=== PATIENT | female | born 1995 | race Caucasian/White ===

== ENCOUNTER 2016-07-23 16:44 | Outpatient (CLI) | payer OTHER ==
[~2016-07-23] VITALS: Ht 149.9 cm; Wt 43.0 kg
[2016-07-23 16:55] VITALS: BP 114/74
[2016-07-23] MEDS ORDERED: PRENTAB9 PO (18:09)
--- NOTE | 2016-07-23 20:06 | HPE ---
DATE OF ADMISSION: 07/23/2016 HISTORY OF PRESENT ILLNESS: This lady is a 21-year-old 2, para 1, last menstrual period (LMP) 11/01/2015, estimated date of confinement (EDC) 08/07/2016, at 37 and 6 weeks with history contractions. PAST HISTORY: Had a delivery in 2013, at 35 weeks, spontaneous vaginal delivery female 6 pounds 8 ounces. LABORATORY DATA: B positive, HIV negative, hepatitis negative, RPR negative, rubella immune. Varicella immune. Pap normal. Urine negative. Gonorrhea and chlamydia negative. One-hour glucose 90. GBS status is unknown. PHYSICAL EXAMINATION: On examination no acute distress. Symphysis fundus height is 37 cm, vertex occiput anterior (OA) 70% effaced, -2 station, very posterior 2 cm. Category one strip. Urine is 1.000, pH seven negative, temperature 99.7, Blood pressure 114/74, respirations are 16 and pulse is 104. The rest of the examination is unremarkable. She is normocephalic and atraumatic. Neck full range of motion. Pupils equal and reactive to light. Distal pulses are symmetric. No evidence of deep venous thrombosis (DVT), pulmonary embolism (PE) or superficial phlebitis. Chest is clear bilaterally to bases. No wheezes or rhonchi. Thyroid is normal midline. No jugular venous distention (JVD). No costovertebral angle tenderness. Uterus is nontender. Four quadrant bowel sounds are noted. Appropriate symphysis fundus height. She has no rashes or lesions or pruritus. No arthralgia, myalgia. No constipation, diarrhea. No nausea, vomiting. No incontinence, urgency or frequency. No bruising. No bleeding. She is neuro complete. No complaints of cough, wheezes, shortness of breath or dyspnea on exertion. No arthralgia or myalgia. No gynecological ([employer] WARE[employer]SE [employer]NALYST) issues. No diabetic issues. The patient is having some uterine irritability on the monitor, had pelvic examination. We re-monitored this lady and reexamined her two hours later; basically no change. We counseled her regarding premature rupture of membranes, labor, vaginal bleeding, and decreased movement, when to call the provider. She has an appointment next week with the provider at [place]. The patient was discharged undelivered.
== END 2016-07-23 19:55 | disposition home or self-care (01) ==
LOC: M LDO 16:44
PROVIDERS: ATTEND Obstetrics & Gynecology
DX: O26.893 Other specified pregnancy related conditions, third trimester (principal); Z3A.37 37 weeks gestation of pregnancy; O62.0 Primary inadequate contractions; Z88.0 Allergy status to penicillin

== ENCOUNTER 2016-07-26 17:04 | Inpatient (IN) | payer OTHER ==
[2016-07-26] VITALS (16 sets, daily range): BP systolic 74–129; BP diastolic 43–81
[~2016-07-26] VITALS: Ht 149.9 cm; Wt 47.0 kg
[~2016-07-26 17:04] MED LIST: PRENTAB9 PO
[2016-07-26] MEDS ORDERED: ONDANSETRON 4 MG TAB (S0181) PO ONE (18:00)
[2016-07-26] MEDS ORDERED: LR 1,000 ML IV SCH (19:45)
[2016-07-26 20:30] LABS: MEAN CORPUSCULAR HEMOGLOBIN 22.9 pg (27.0-33.0); MEAN CORPUSCULAR HGB CONC 32.2 g/dl (32.0-36.5); MEAN CORPUSCULAR VOLUME 71.2 fl (80.0-96.0); RED CELL DISTRIBUTION WIDTH 16.3 % (11.5-14.5); WHITE BLOOD COUNT 5.7 K/mm3 (4.0-10.0)
[2016-07-26] MEDS ORDERED: FENTANYL 2MCG/ML ROPIVACAINE 0.2% NACL 250 ML CADD As Ordered ONE (20:39)
[2016-07-26] MEDS ORDERED: OXYTOCIN INJ 10 UNITS/ML VIAL (J2590) As Ordered ONE (20:42)
[2016-07-26] MEDS ORDERED: OXYTOCIN 30 UNITS IN 0.9% NaCl 500ML IV BAG (J2590) As Ordered ONE (20:42)
[2016-07-26] MEDS ORDERED: NALOXONE INJ 0.4 MG/1 ML VIAL (J2310) IV PRN (21:15)
[2016-07-26] MEDS ORDERED: LACTATED RINGER'S 1000 ML IV PRN (21:15)
[2016-07-26] MEDS ORDERED: diphenhydrAMINE INJ 50MG/ML VIAL (J1200) IV PRN (21:15)
[2016-07-26] MEDS ORDERED: ONDANSETRON 4MG/2ML VIAL (J2405) IV PRN (21:15)
[2016-07-26] MEDS ORDERED: FENTANYL/ROPIVACAINE/NACL BAG 200 ML EPIDURAL SCH (21:15)
[2016-07-26] MEDS ORDERED: EPIDURAL/PCA KEYS XX PRN (21:15)
[2016-07-26] MEDS ORDERED: ePHEDrine SULFATE 25 MG/5 ML(5MG/ML) SYRINGE IV PRN (21:15)
[2016-07-26] MEDS ORDERED: REFRIGERATOR IV KEYS XX PRN (21:15)
[2016-07-26] MEDS ORDERED: EPIDURAL COMMENT XX SCH (21:15)
[2016-07-27] VITALS (8 sets, daily range): BP systolic 99–118; BP diastolic 50–79
[2016-07-27] MEDS ORDERED: OXYTOCIN DRIP 30 UNITS in APPROPRIATE DILUENT 1 EA IV SCH (01:44)
[2016-07-27] MEDS ORDERED: OXYTOCIN INJ 10 UNITS/ML VIAL (J2590) IV ONE (01:45)
[2016-07-27] MEDS ORDERED: MEASLES,MUMPS,RUBELLA VACCINE INJ (MMR-II) (90707) SC SCH (01:45)
[2016-07-27] MEDS ORDERED: METHYLERGONOVINE MALEATE 0.2 MG TAB PO PRN (01:45)
[2016-07-27] MEDS ORDERED: MOM 30ML SUSPENSION UDC PO PRN (01:45)
[2016-07-27] MEDS ORDERED: ANUSOL HC CREAM 30GM TOP PRN (01:45)
[2016-07-27] MEDS ORDERED: RHOGAM 300 MCG (1500 IU) INJ (J2790) IM SCH (01:45)
[2016-07-27] MEDS ORDERED: IBUPROFEN 600 MG TAB PO PRN (01:45)
[2016-07-27] MEDS ORDERED: DOCUSATE SODIUM 100 MG CAP PO PRN (01:45)
[2016-07-27] MEDS ORDERED: DIBUCAINE 1% OINTMENT 30GM TOP PRN (01:45)
[2016-07-27 01:56] LABS: CORD GAS ABE V -3.1; CORD GAS HCO3 A 25.6 MEQ/L; CORD GAS HCO3 V 22.8 MEQ/L; CORD GAS O2 SAT A 25.3 %; CORD GAS O2 SAT V 65.1 %; CORD GAS PCO2 A 60.6 mmHg; CORD GAS PCO2 V 43.8 mmHg; CORD GAS PH A 7.244 UNITS; CORD GAS PH V 7.335 UNITS; CORD GAS PO2 A 15.4 mmHg; CORD GAS PO2 V 28.5 mmHg; CORD GAS SBC A 20.3 MEQ/L; CORD GAS SBC V 21.1 MEQ/L; CORD GAS TCO2 A 27.5 MEQ/L; CORD GAS TCO2 V 24.2 MEQ/L
--- NOTE | 2016-07-27 04:28 | DN ---
DATE: 07/27/2016 This lady is 1 now para 2 admitted in spontaneous labor at 38-3/7 weeks of gestation. After epidural was placed and the AROM was done draining clear liqua, she was 8 cm in the OT position at full dilatation. Spontaneous vaginal delivery live female infant weighing 6 pounds 15 ounces, 3150 grams. of 8/9 at 1 and 5 minutes respectively. Arterial and venous pH was performed. Placenta delivered spontaneously thereafter. Three-vessel cord, membranes and tissues intact. Examination of the perineum, the vagina and the cervix were normal. No tears, extensions, or lacerations. Uterus contracted well down on Pitocin. The patient and baby tolerating procedure well.
[2016-07-27] MEDS: PRENATAL VITAMIN TAB PO SCH (07:20)
[2016-07-27] MEDS: ACETAMINOPHEN 500 MG TAB PO PRN ×2 (13:48→20:33)
[2016-07-28 06:00] VITALS: BP 119/80
--- NOTE | 2016-07-28 06:36 | IPNPDOC ---
Text Note Date of Service The patient was seen on 07/28/16. NOTE PPD 1 Arlene is a 21yo [id number] doing well on PPD 1 s/p uncomplicated on 07/27 at 0149. She is . Lochia normal, spontaneously voiding and ambulating without difficulty. Tolerating regular diet. Denies f/c/n/v/SOB/CP/GORDILLO /abdominal pain. Vitals wnl, afebrile Exam: General: WDWN, NAD, resting comfortably Cardiac: S1S2 present, no murmur Lungs: CTAB without wheeze/crackles Abdomen: soft, NTTP, fundus firm u-2cm Extremities: no tenderness of calves bilaterally Assessment: Arlene is a 21yo [id number] doing well on PPD 1 s/p uncomplicated on 07/27 at 0149. No e/o infection, hemodynamically stable. Meeting all milestones. Plan: -discharge to home today -Prescriptions given before discharge: motrin and lanolin -routine follow up in 6 weeks for PP visit Dr. Nancy Palafox MD ThurstonKimo Rowell, I+O Kimo STRONG I+O Vital Signs Date Time Temp Pulse Resp B/P Pulse Ox O2 Delivery O2 Flow Rate FiO2 07/28/16 06:00 98.1 71 18 119/80 97 Room Air NANCY PALAFOX MD Jul 28, 2016 06:36
[2016-07-28] MEDS ORDERED: IBUP-1114 PO (07:30)
[2016-07-28 08:38] LABS: MEAN CORPUSCULAR HEMOGLOBIN 22.3 pg (27.0-33.0); MEAN CORPUSCULAR HGB CONC 30.4 g/dl (32.0-36.5); MEAN CORPUSCULAR VOLUME 73.5 fl (80.0-96.0); RED CELL DISTRIBUTION WIDTH 16.4 % (11.5-14.5); WHITE BLOOD COUNT 7.4 K/mm3 (4.0-10.0)
[2016-07-28] MEDS: PRENATAL VITAMIN TAB PO SCH (08:54)
== END 2016-07-28 11:15 | disposition home or self-care (01) | DRG 775 ==
LOC: M LDO 17:04 → M LDI 19:42 → M OBS 07-27 04:02
PROVIDERS: ADMIT Advanced Practice Midwife; ATTEND Advanced Practice Midwife
PROC: 10E0XZZ Delivery of Products of Conception, External Approach (ICD-10-PCS; principal; 2016-07-27)
PROC: 10907ZC Drainage of Amniotic Fluid, Therapeutic from Products of Conception, Via Natural or Artificial Opening (ICD-10-PCS; 2016-07-27)
DX: O80 Encounter for full-term uncomplicated delivery (principal); Z37.0 Single live birth; Z3A.38 38 weeks gestation of pregnancy

== ENCOUNTER → 2018-08-06 | Outpatient (REF) | payer OTHER ==
[~2018-08-06] MED LIST changes: +IBUP-1114 PO
[2018-08-06 17:42] LABS: BASO % 0.2 % (0.0-1.0); EOS % 0.5 % (0.0-3.0); HEMATOCRIT 40.4 % (36.0-47.0); HEMOGLOBIN 13.7 g/dl (12.0-15.5); LYMPH # 1.5 10^3/uL (1.5-6.5); LYMPH % 24.2 % (24.0-44.0); MEAN CORPUSCULAR HEMOGLOBIN 28.8 pg (27.0-33.0); MEAN CORPUSCULAR HGB CONC 33.9 g/dl (32.0-36.5); MEAN CORPUSCULAR VOLUME 84.9 fl (80.0-96.0); MONO # 0.3 10^3/uL (0.0-0.8); MONO % 4.7 % (0.0-5.0); NEUTROPHILS # 4.2 10^3/uL (1.8-7.7); NEUTROPHILS % 70.2 % (36.0-66.0); PLATELET COUNT, AUTOMATED 199 10^3/uL (150-450); RED BLOOD COUNT 4.76 10^6/uL (4.00-5.40)
[2018-08-06 17:48] LABS: ALBUMIN 3.6 GM/DL (3.2-5.2); ALT/SGPT 18 U/L (12-78); BILIRUBIN,TOTAL 1.1 MG/DL (0.2-1.0); BLOOD UREA NITROGEN 11 MG/DL (7-18); CALCIUM LEVEL 8.2 MG/DL (8.5-10.1); CARBON DIOXIDE LEVEL 27 MEQ/L (21-32); CHLORIDE LEVEL 104 MEQ/L (98-107); CHOLESTEROL LEVEL 139 MG/DL (<200); CHOLESTEROL RISK RATIO 2.138 (<5); GLOMERULAR FILTRATION RATE > 60.0 (>60); GLUCOSE, FASTING 84 MG/DL (70-100); HDL CHOLESTEROL 65 MG/DL (>40); LDL CHOLESTEROL 56 MG/DL (<100); NON-HDL-C 74 MG/DL; SODIUM LEVEL 138 MEQ/L (136-145); TOTAL PROTEIN 7.3 GM/DL (6.4-8.2); TRIGLYCERIDES LEVEL 89 MG/DL (<150)
[2018-08-06 18:18] LABS: HEMOGLOBIN A1c 4.9 %
== END ==
LOC: M LAB REF 16:31
PROVIDERS: ATTEND Nurse Practitioner Family
DX: Z13.9 Encounter for screening, unspecified (principal)

== ENCOUNTER → 2019-12-03 | Outpatient (REF) | payer OTHER ==
[2019-12-30 13:54] LABS: AMORPHOUS SEDIMENT MODERATE (NEGATIVE); APPEARANCE, URINE TURBID (CLEAR); BACTERIA, URINE AUTO NEGATIVE (NEGATIVE); BILIRUBIN, URINE AUTO NEGATIVE (NEGATIVE); BLOOD, URINE BLOOD 3+ (NEGATIVE); CALCIUM OXALATE CRYSTALS SMALL; COLOR, URINE YELLOW (YELLOW); GLUCOSE, URINE (UA) AUTO NEGATIVE (NEGATIVE); KETONE, URINE AUTO TRACE mg/dL (NEGATIVE); LEUKOCYTE ESTERASE, URINE AUTO NEGATIVE (NEGATIVE); MUCUS, URINE LARGE (NEGATIVE); NITRITE, URINE AUTO NEGATIVE (NEGATIVE); PROTEIN, URINE AUTO 1+ mg/dL (NEGATIVE); RBC, URINE AUTO 6 /HPF (0-3); SPECIFIC GRAVITY URINE AUTO 1.025 (1.002-1.035); SQUAMOUS EPITHELIAL CELL UR AU 0 /HPF (0-6); WBC, URINE AUTO 11 /HPF (0-3)
[2019-12-30 20:28] LABS: BASO % 0.3 % (0.0-1.0); EOS # 0.1 10^3/uL (0.0-0.5); EOS % 1.8 % (0.0-3.0); HEMATOCRIT 44.4 % (36.0-47.0); LYMPH # 1.3 10^3/uL (1.5-5.0); LYMPH % 32.9 % (24.0-44.0); MEAN CORPUSCULAR HEMOGLOBIN 29.1 pg (27.0-33.0); MEAN CORPUSCULAR HGB CONC 33.8 g/dl (32.0-36.5); MEAN CORPUSCULAR VOLUME 86.2 fl (80.0-96.0); MONO # 0.3 10^3/uL (0.0-0.8); MONO % 6.4 % (0.0-5.0); NEUTROPHILS # 2.3 10^3/uL (1.5-8.5); NEUTROPHILS % 58.3 % (36.0-66.0); PLATELET COUNT, AUTOMATED 193 10^3/uL (150-450); RED BLOOD COUNT 5.15 10^6/uL (4.00-5.40); WHITE BLOOD COUNT 3.9 10^3/uL (4.0-10.0)
[2020-01-15 13:34] LABS: HEMOGLOBIN A1c 4.7 %
[2020-01-15 13:35] LABS: ALBUMIN 4.7 GM/DL (3.2-5.2); ALT/SGPT 24 U/L (12-78); BILIRUBIN,TOTAL 1.1 MG/DL (0.2-1.0); BLOOD UREA NITROGEN 8 MG/DL (7-18); CALCIUM LEVEL 9.3 MG/DL (8.5-10.1); CARBON DIOXIDE LEVEL 28 MEQ/L (21-32); CHLORIDE LEVEL 106 MEQ/L (98-107); CHOLESTEROL LEVEL 173 MG/DL (<200); CHOLESTEROL RISK RATIO 3.326 (<5); CREATININE FOR GFR 0.86 MG/DL (0.55-1.30); FREE T4 1.17 NG/DL (0.76-1.46); GLOMERULAR FILTRATION RATE > 60.0 (>60); GLUCOSE, FASTING 75 MG/DL (70-100); HDL CHOLESTEROL 52 MG/DL (>40); LDL CHOLESTEROL 99 MG/DL (<100); NON-HDL-C 121 MG/DL; POTASSIUM SERUM 3.9 MEQ/L (3.5-5.1); SODIUM LEVEL 138 MEQ/L (136-145); TOTAL PROTEIN 8.9 GM/DL (6.4-8.2); TRIGLYCERIDES LEVEL 109 MG/DL (<150)
== END ==
LOC: M LAB REF 08:55
PROVIDERS: ATTEND Nurse Practitioner Family
DX: Z13.29 Encounter for screening for other suspected endocrine disorder (principal); Z00.00 Encounter for general adult medical examination without abnormal findings; Z13.9 Encounter for screening, unspecified

== ENCOUNTER → 2020-06-05 | Outpatient (CLI) | payer SELFPAY | LOC: M LABSMTC 10:01 | PROVIDERS: ATTEND Pediatrics | DX: Z20.822 Contact with and (suspected) exposure to COVID-19 (principal) ==

== ENCOUNTER → 2020-06-13 | Outpatient (CLI) | payer SELFPAY | LOC: M LABSMTC 10:51 | PROVIDERS: ATTEND Pediatrics | DX: Z20.822 Contact with and (suspected) exposure to COVID-19 (principal) ==

== ENCOUNTER → 2020-06-20 | Outpatient (CLI) | payer SELFPAY | LOC: M LABSMTC 11:27 | PROVIDERS: ATTEND Pediatrics | DX: Z20.822 Contact with and (suspected) exposure to COVID-19 (principal) ==

== ENCOUNTER → 2020-06-28 | Outpatient (CLI) | payer SELFPAY | LOC: M LABSMTC 10:44 | PROVIDERS: ATTEND Pediatrics | DX: Z11.52 Encounter for screening for COVID-19 (principal) ==

== ENCOUNTER → 2020-07-06 | Outpatient (CLI) | payer SELFPAY | LOC: M LABSMTC 09:47 | PROVIDERS: ATTEND Pediatrics | DX: Z20.822 Contact with and (suspected) exposure to COVID-19 (principal) ==

== ENCOUNTER 2020-07-07 19:41 | Emergency (ER) | payer OTHER ==
[~2020-07-07] VITALS: Ht 149.9 cm; Wt 43.1 kg
[2020-07-07] MEDS ORDERED: diphenhydrAMINE 50MG/ML VIAL (J1200) IV STA (20:52)
[2020-07-07] MEDS ORDERED: METOCLOPRAMIDE 10 MG TAB PO ONE (20:55)
[2020-07-07] MEDS ORDERED: NS 1,000 ML IV ONE (20:55)
[2020-07-07] MEDS ORDERED: KETOROLAC 30 MG/ML 1ML VIAL IV ONE (20:55)
--- NOTE | 2020-07-07 21:43 | REPVR ---
PROCEDURE INFORMATION: Exam: CT Head Without Contrast Exam date and time: 07/07/2020 9:02 PM Age: 25 years old Clinical indication: Pain; Headache; Additional info: Severe posterior headache TECHNIQUE: Imaging protocol: Computed tomography of the head without contrast. Radiation optimization: All CT scans at this facility use at least one of these dose optimization techniques: automated exposure control; mA and/or kV adjustment per patient size (includes targeted exams where dose is matched to clinical indication); or iterative reconstruction. COMPARISON: No relevant prior studies available. FINDINGS: Brain: Normal. No hemorrhage. Unremarkable white matter. No mass effect. Cerebral ventricles: No ventriculomegaly. Bones/joints: Unremarkable. No acute fracture. Paranasal sinuses: Visualized sinuses are unremarkable. No fluid levels. Mastoid air cells: Visualized mastoid air cells are well aerated. Soft tissues: Unremarkable. IMPRESSION: No acute intracranial abnormality. Electronically signed by: Krystal Arredondo On 07/07/2020 21:43:55 PM
[2020-07-07 22:57] VITALS: BP 129/69
== END 2020-07-07 22:59 | disposition home or self-care (01) ==
LOC: M ED 19:41
DX: R51.9 Headache, unspecified (principal); R42 Dizziness and giddiness; Z88.0 Allergy status to penicillin
CPT/HCPCS: 70450; 96361; 96374; 96375; 99284; J1200; J1885

== ENCOUNTER → 2020-07-14 | Outpatient (CLI) | payer SELFPAY | LOC: M LABSMTC 11:56 | PROVIDERS: ATTEND Pediatrics | DX: Z11.52 Encounter for screening for COVID-19 (principal) ==

== ENCOUNTER → 2020-07-17 | Outpatient (CLI) | payer SELFPAY | LOC: M LABSMTC 09:53 | PROVIDERS: ATTEND Pediatrics | DX: Z11.52 Encounter for screening for COVID-19 (principal) ==

== ENCOUNTER → 2020-07-26 | Outpatient (CLI) | payer OTHER | LOC: M LABSMTC 09:55 | PROVIDERS: ATTEND Pediatrics | DX: Z20.822 Contact with and (suspected) exposure to COVID-19 (principal) ==

== ENCOUNTER → 2020-08-09 | Outpatient (CLI) | payer SELFPAY | LOC: M LABSMTC 11:50 | PROVIDERS: ATTEND Pediatrics | DX: Z20.828 Contact with and (suspected) exposure to other viral communicable diseases (principal); Z11.59 Encounter for screening for other viral diseases ==

== ENCOUNTER 2020-08-18 13:08 | Emergency (ER) | payer OTHER ==
[~2020-08-18] VITALS: Ht 149.9 cm; Wt 42.6 kg
[~2020-08-18 13:08] MED LIST changes: -METR-265
[2020-08-18] MEDS ORDERED: METR-265 (13:13)
[2020-08-18] MEDS ORDERED: hydrOXYzine 25 MG TAB PO ONE (13:30)
[2020-08-18] MEDS ORDERED: ASPIRIN 81 MG CHEW TABLET PO ONE (14:00)
--- NOTE | 2020-08-18 14:36 | REP ---
INDICATION: cp. COMPARISON: None. TECHNIQUE: Two views FINDINGS: The superior mediastinal structures are midline. The cardiac silhouette is unremarkable in size, shape, and position. The diaphragmatic surfaces of the lungs are regular, and the costophrenic angles are clear. The pulmonary cristina are clear. The imaged osseous structures are intact. IMPRESSION: There is no acute cardiopulmonary disease. <Electronically signed by Armond Santillan > 08/18/20 [id number]
[2020-08-18 14:59] LABS: BASO % 0.7 % (0.0-1.0); EOS % 0.9 % (0.0-3.0); HEMATOCRIT 46.3 % (36.0-47.0); HEMOGLOBIN 16.4 g/dl (12.0-15.5); LYMPH # 1.6 10^3/uL (1.5-5.0); LYMPH % 34.6 % (24.0-44.0); MEAN CORPUSCULAR HEMOGLOBIN 29.7 pg (27.0-33.0); MEAN CORPUSCULAR HGB CONC 35.4 g/dl (32.0-36.5); MEAN CORPUSCULAR VOLUME 83.7 fl (80.0-96.0); MONO # 0.4 10^3/uL (0.0-0.8); MONO % 7.7 % (2.0-8.0); NEUTROPHILS # 2.6 10^3/uL (1.5-8.5); NEUTROPHILS % 55.9 % (36.0-66.0); PLATELET COUNT, AUTOMATED 231 10^3/uL (150-450); RED BLOOD COUNT 5.53 10^6/uL (4.00-5.40); WHITE BLOOD COUNT 4.6 10^3/uL (4.0-10.0)
[2020-08-18 15:20] LABS: BLOOD UREA NITROGEN 7 MG/DL (7-18); CALCIUM LEVEL 8.9 MG/DL (8.5-10.1); CARBON DIOXIDE LEVEL 27 MEQ/L (21-32); CHLORIDE LEVEL 105 MEQ/L (98-107); CK-MB VALUE MASS < 1.0 NG/ML (<3.6); CPK CREATINE PHOSPHOKINASE 70 U/L (26-192); CREATININE FOR GFR 0.68 MG/DL (0.55-1.30); GLOMERULAR FILTRATION RATE > 60.0 (>60); GLUCOSE, FASTING 93 MG/DL (70-100); MB/CK RELATIVE INDEX 1.43 (< OR =4); POTASSIUM SERUM 3.7 MEQ/L (3.5-5.1); SODIUM LEVEL 139 MEQ/L (136-145); TROPONIN I < 0.02 NG/ML (< 0.10)
[2020-08-18] MEDS ORDERED: ACETAMINOPHEN 325 MG TAB PO ONE (15:45)
[2020-08-18 15:48] VITALS: BP 116/68
--- NOTE | 2020-08-20 12:25 | ECGEPIP ---
[facility] - ED Test Date: 2020-08-18 Pat Name: NIKKO REDD Department: Room: - Gender: Female Internship: ADE : 1995 Requested By: ALONDRA HARDIN Order Number: [id number] Reading MD: Janis Stauffer Measurements Intervals [place] Rate: 73 P: 29 CT: 102 QRS: 82 QRSD: 74 T: 28 QT: 380 QTc: 418 Interpretive Statements Sinus rhythm with short CT No prior Electronically Signed on 08-20-2020 12:24:58 EDT by Janis Stauffer
== END 2020-08-18 15:56 | disposition home or self-care (01) ==
LOC: M ED 13:08
DX: F43.20 Adjustment disorder, unspecified (principal); R45.4 Irritability and anger; Z88.0 Allergy status to penicillin

== ENCOUNTER → 2020-08-18 | Outpatient (CLI) | payer SELFPAY ==
[~2020-08-18] MED LIST changes: +METR-265
== END ==
LOC: M LABSMTC 12:45
PROVIDERS: ATTEND Pediatrics
DX: Z20.822 Contact with and (suspected) exposure to COVID-19 (principal)

== ENCOUNTER → 2020-08-28 | Outpatient (REF) | payer OTHER ==
[~2020-08-28] MED LIST changes: +METR-265
[2020-08-28 12:42] LABS: BASO % 0.7 % (0.0-1.0); EOS # 0.1 10^3/uL (0.0-0.5); EOS % 1.4 % (0.0-3.0); HEMATOCRIT 43.9 % (36.0-47.0); HEMOGLOBIN 14.9 g/dl (12.0-15.5); LYMPH # 1.4 10^3/uL (1.5-5.0); MEAN CORPUSCULAR HEMOGLOBIN 29.2 pg (27.0-33.0); MEAN CORPUSCULAR HGB CONC 33.9 g/dl (32.0-36.5); MEAN CORPUSCULAR VOLUME 85.9 fl (80.0-96.0); MONO # 0.3 10^3/uL (0.0-0.8); NEUTROPHILS # 2.5 10^3/uL (1.5-8.5); NEUTROPHILS % 58.7 % (36.0-66.0); PLATELET COUNT, AUTOMATED 224 10^3/uL (150-450); RED BLOOD COUNT 5.11 10^6/uL (4.00-5.40); WHITE BLOOD COUNT 4.3 10^3/uL (4.0-10.0)
[2020-08-28 13:06] LABS: ALBUMIN 4.1 GM/DL (3.2-5.2); ALT/SGPT 33 U/L (12-78); BLOOD UREA NITROGEN 10 MG/DL (7-18); CALCIUM LEVEL 9.1 MG/DL (8.5-10.1); CARBON DIOXIDE LEVEL 29 MEQ/L (21-32); CHLORIDE LEVEL 103 MEQ/L (98-107); CREATININE FOR GFR 0.69 MG/DL (0.55-1.30); FERRITIN 18 NG/ML (8-252); GLOMERULAR FILTRATION RATE > 60.0 (>60); GLUCOSE, FASTING 75 MG/DL (70-100); IRON (FE) 162 UG/DL (50-170); MAGNESIUM LEVEL 2.1 MG/DL (1.8-2.4); PERCENT SATURATION 56.6 % (13.2-45.0); POTASSIUM SERUM 4.3 MEQ/L (3.5-5.1); SODIUM LEVEL 137 MEQ/L (136-145); TOTAL IRON BINDING CAPACITY 286 UG/DL (250-450); TOTAL PROTEIN 7.8 GM/DL (6.4-8.2)
[2020-08-28 13:15] LABS: FOLATE 13.2 NG/ML; VITAMIN B12 LEVEL 307 PG/ML
== END ==
LOC: M LAB REF 11:34
PROVIDERS: ATTEND Nurse Practitioner Family
DX: R07.9 Chest pain, unspecified (principal)